=== PATIENT | male | born 1960 | race Caucasian/White ===

== ENCOUNTER → 2020-11-13 | Outpatient (CLI) | payer OTHER ==
[~2020-11-13] MED LIST: ALBUTEROL SULFATE 0.083% 2.5 MG/3 ML INH IH ONE
== END | disposition home or self-care (01) ==
LOC: RESP 12:59
PROVIDERS: ATTEND Orthopaedic Surgery
DX: J44.9 Chronic obstructive pulmonary disease, unspecified (principal)
CPT/HCPCS: 71046; 94060

== ENCOUNTER 2021-04-23 16:08 | Inpatient (IN) | payer OTHER ==
[~2021-04-23] VITALS: Ht 175.3 cm; Wt 108.9 kg
[2021-04-23 16:13] VITALS: BP 117/69
[2021-04-23 16:38] LABS: BASOPHILS % (AUTO) 0.6 % (0.0-5.0); EOSINOPHILS % (AUTO) 0.9 % (0.0-8.0); HEMATOCRIT 45.1 % (42-54); LYMPHOCYTES % (AUTO) 22.7 % (21.0-51.0); MEAN CORPUSCULAR HEMOGLOBIN 27.2 pg (27.0-33.0); MEAN CORPUSCULAR HGB CONC 31.5 g/dL (32.0-36.0); MEAN CORPUSCULAR VOLUME 86.2 fL (79-99); MONOCYTES % (AUTO) 9.2 % (3.0-13.0); NEUTROPHILS % (AUTO) 66.4 % (40.0-77.0); PLATELET COUNT (AUTO) 262 K/uL (130-400); RED BLOOD CELL COUNT(AUTO) 5.23 MIL/uL (4.50-6.20); RED CELL DISTRIBUTION WIDTH 15.7 % (11.0-15.5); WHITE BLOOD COUNT (AUTO) 4.7 K/uL (4.8-10.8)
[2021-04-23 16:47] LABS: CREATININE 1.2 mg/dL (0.5-1.5); POTASSIUM 4.3 mmol/L (3.5-5.1)
[2021-04-23 16:58] LABS: ALBUMIN 3.6 g/dL (3.5-5.0); TOTAL PROTEIN, SERUM 7.5 g/dL (6.0-8.3); TROPONIN I 0.31 ng/mL (0.00-0.06)
[2021-04-23 17:01] LABS: THYROID STIMULATING HORMONE 5.54 uIU/mL (0.36-3.74)
[2021-04-23 17:29] VITALS: BP 117/76
[2021-04-23] MEDS ORDERED: ASPIRIN 325 MG TABLET PO ONE (17:30)
[2021-04-23] MEDS ORDERED: NACL 0.9% 1000ML 1,000 ML IV ONE (17:30)
[2021-04-23 18:09] VITALS: BP 122/72
[2021-04-23] MEDS ORDERED: METOPROLOL TARTRATE 1 MG/ML 5ML VIAL IV ONE (18:30)
[2021-04-23 19:11] LABS: APPEARANCE,URINE Clear (CLEAR); BILIRUBIN,URINE Negative (NEGATIVE); COLOR,URINE Yellow (YELLOW); GLUCOSE, URINE (UA) Negative (NEGATIVE); KETONES,URINE Negative (NEGATIVE); LEUKOCYTE ESTERASE ,URINE Negative (NEGATIVE); NITRATE,URINE Negative (NEGATIVE); OCCULT BLOOD,URINE Negative (NEGATIVE); PH,URINE 7.5 (5.0-8.0); PROTEIN,URINE Negative (NEGATIVE)
[2021-04-23 19:19] VITALS: BP 122/77
[2021-04-23 19:19] LABS: AMPHET/METH SCREEN,URINE NEGATIVE (NEGATIVE); BARBITURATE SCREEN, URINE NEGATIVE (NEGATIVE); BENZODIAZEPINES SCREEN,URINE NEGATIVE (NEGATIVE); CANNABINOID SCREEN,URINE NEGATIVE (NEGATIVE); COCAINE SCREEN,URINE NEGATIVE (NEGATIVE); OPIATE SCREEN,URINE NEGATIVE (NEGATIVE); PHENCYCLIDINE SCREEN,URINE NEGATIVE (NEGATIVE)
[2021-04-23] MEDS ORDERED: ONDANSETRON 4MG INJ IV PRN (21:15)
[2021-04-23] MEDS ORDERED: ACETAMINOPHEN 325 MG TAB PO PRN ×2 (21:15)
[2021-04-23 21:47] VITALS: BP 145/91
[2021-04-23] MEDS ORDERED: VITA1TAB22 PO (22:47)
[2021-04-23] MEDS ORDERED: ASPI-1197 PO (22:47)
[2021-04-23] MEDS ORDERED: ATOR40TA69 PO (22:47)
[2021-04-23] MEDS ORDERED: LEVO100C4 PO (22:47)
[2021-04-23] MEDS ORDERED: MULT-1203 PO (22:47)
[2021-04-23] MEDS ORDERED: ENAL10TA18 PO (22:47)
[2021-04-23] MEDS ORDERED: FLUO20TA29 PO (22:47)
[2021-04-23] MEDS ORDERED: FISH1CAP20 PO (22:47)
[2021-04-24] VITALS (9 sets, daily range): BP systolic 101–139; BP diastolic 47–91
[2021-04-24 06:37] LABS: BASOPHILS % (AUTO) 0.9 % (0.0-5.0); EOSINOPHILS % (AUTO) 2.4 % (0.0-8.0); LYMPHOCYTES % (AUTO) 25.8 % (21.0-51.0); MEAN CORPUSCULAR HEMOGLOBIN 26.6 pg (27.0-33.0); MEAN CORPUSCULAR VOLUME 86.1 fL (79-99); MONOCYTES % (AUTO) 10.4 % (3.0-13.0); NEUTROPHILS % (AUTO) 60.3 % (40.0-77.0); PLATELET COUNT (AUTO) 257 K/uL (130-400); RED BLOOD CELL COUNT(AUTO) 4.88 MIL/uL (4.50-6.20); RED CELL DISTRIBUTION WIDTH 15.7 % (11.0-15.5); WHITE BLOOD COUNT (AUTO) 4.6 K/uL (4.8-10.8)
[2021-04-24 06:49] LABS: ALBUMIN 3.2 g/dL (3.5-5.0); BILIRUBIN,TOTAL 0.6 mg/dL (0.2-1.0); CREATININE 1.1 mg/dL (0.5-1.5); POTASSIUM 4.2 mmol/L (3.5-5.1); TOTAL PROTEIN, SERUM 6.9 g/dL (6.0-8.3)
[2021-04-24] MEDS: INSULIN HUMULIN R 100 UNIT/ML 3ML SQ SCH ×4 (07:14→20:24)
[2021-04-24] MEDS ORDERED: HEPARIN 5,000 UNIT VIAL SQ SCH (08:15)
[2021-04-24] MEDS ORDERED: METOPROLOL TARTRATE 25 MG TAB PO SCH (09:00)
[2021-04-24] MEDS ORDERED: ENOXAPARIN SODIUM 30 MG/0.3 ML SQ SCH (09:00)
[2021-04-24] MEDS ORDERED: METOPROLOL TARTRATE 1 MG/ML 5ML VIAL IV STA (13:24)
[2021-04-24] MEDS ORDERED: METOPROLOL TARTRATE 1 MG/ML 5ML VIAL IV ONE (13:30)
[2021-04-24] MEDS ORDERED: METOPROLOL TARTRATE 1 MG/ML 5ML VIAL IV SCH (13:30)
[2021-04-24] MEDS ORDERED: NITROGLYCERIN 0.4 MG SL TAB SL ONE (13:30)
[2021-04-24] MEDS ORDERED: NITROGLYCERIN 0.4 MG SL TAB SL PRN ×2 (13:30)
[2021-04-24 14:40] LABS: TROPONIN I 0.2 ng/mL (0.00-0.06)
[2021-04-24] MEDS ORDERED: DILTIAZEM 125MG+100 ML NS 125 ML IV SCH (15:00)
[2021-04-24] MEDS ORDERED: ENOXAPARIN SODIUM 120 MG/0.8ML SQ ONE (19:29)
[2021-04-24] MEDS: ENOXAPARIN SODIUM 120 MG/0.8ML SQ SCH (20:21)
[2021-04-24] MEDS ORDERED: ENOXAPARIN SODIUM 1 MG/KG SQ SCH (21:00)
[2021-04-24] MEDS: DILTIAZEM 60MG TAB PO SCH (21:32)
[2021-04-25 04:03] VITALS: BP 119/55
[2021-04-25 04:33] LABS: BASOPHILS % (AUTO) 0.6 % (0.0-5.0); EOSINOPHILS % (AUTO) 1.7 % (0.0-8.0); HEMATOCRIT 40.5 % (42-54); LYMPHOCYTES % (AUTO) 27.6 % (21.0-51.0); MEAN CORPUSCULAR HEMOGLOBIN 26.8 pg (27.0-33.0); MEAN CORPUSCULAR HGB CONC 31.1 g/dL (32.0-36.0); MONOCYTES % (AUTO) 12.1 % (3.0-13.0); NEUTROPHILS % (AUTO) 57.8 % (40.0-77.0); PLATELET COUNT (AUTO) 213 K/uL (130-400); RED BLOOD CELL COUNT(AUTO) 4.71 MIL/uL (4.50-6.20); RED CELL DISTRIBUTION WIDTH 15.7 % (11.0-15.5); WHITE BLOOD COUNT (AUTO) 4.8 K/uL (4.8-10.8)
[2021-04-25 04:51] LABS: ALBUMIN 3.3 g/dL (3.5-5.0); BILIRUBIN,TOTAL 0.6 mg/dL (0.2-1.0); CREATININE 0.9 mg/dL (0.5-1.5); POTASSIUM 4.2 mmol/L (3.5-5.1); TOTAL PROTEIN, SERUM 6.9 g/dL (6.0-8.3)
[2021-04-25] MEDS: INSULIN HUMULIN R 100 UNIT/ML 3ML SQ SCH ×4 (05:39→21:00)
[2021-04-25 07:00] VITALS: BP 142/68
[2021-04-25] MEDS ORDERED: ASPIRIN 81MG CHEW TAB PO SCH (09:00)
[2021-04-25] MEDS: MULTIVITAMIN TABLET PO SCH (09:38)
[2021-04-25] MEDS: ASPIRIN 81MG CHEW TAB PO SCH (09:38)
[2021-04-25] MEDS: FISH OIL 1000 MG/CAP PO SCH (09:38)
[2021-04-25] MEDS: FLUOXETINE HCL 20 MG CAPSULE PO SCH (09:38)
[2021-04-25] MEDS: ENOXAPARIN SODIUM 120 MG/0.8ML SQ SCH ×2 (09:39→21:20)
[2021-04-25 11:00] VITALS: BP 150/71
[2021-04-25] MEDS: DILTIAZEM 60MG TAB PO SCH ×3 (11:29→23:32)
[2021-04-25 15:00] VITALS: BP 134/76
[2021-04-25 20:17] VITALS: BP 153/71
[2021-04-25] MEDS: ATORVASTATIN 40 MG TABLET PO SCH (21:21)
[2021-04-25 23:26] VITALS: BP 124/51
[2021-04-26] VITALS (7 sets, daily range): BP systolic 130–186; BP diastolic 60–83
[2021-04-26 03:47] LABS: BASOPHILS % (AUTO) 0.4 % (0.0-5.0); EOSINOPHILS % (AUTO) 0.7 % (0.0-8.0); HEMATOCRIT 39.5 % (42-54); LYMPHOCYTES % (AUTO) 18.3 % (21.0-51.0); MEAN CORPUSCULAR HEMOGLOBIN 27.6 pg (27.0-33.0); MEAN CORPUSCULAR HGB CONC 31.9 g/dL (32.0-36.0); MEAN CORPUSCULAR VOLUME 86.4 fL (79-99); MONOCYTES % (AUTO) 9.9 % (3.0-13.0); NEUTROPHILS % (AUTO) 70.2 % (40.0-77.0); PLATELET COUNT (AUTO) 213 K/uL (130-400); RED BLOOD CELL COUNT(AUTO) 4.57 MIL/uL (4.50-6.20); RED CELL DISTRIBUTION WIDTH 15.3 % (11.0-15.5); WHITE BLOOD COUNT (AUTO) 5.5 K/uL (4.8-10.8)
[2021-04-26 04:02] LABS: ALBUMIN 3.3 g/dL (3.5-5.0); BILIRUBIN,TOTAL 0.8 mg/dL (0.2-1.0); CREATININE 0.9 mg/dL (0.5-1.5); POTASSIUM 3.9 mmol/L (3.5-5.1)
[2021-04-26] MEDS: INSULIN HUMULIN R 100 UNIT/ML 3ML SQ SCH ×4 (05:38→20:25)
[2021-04-26] MEDS ORDERED: LEVOTHYROXINE 100 MCG TABLET ONE (05:43)
[2021-04-26] MEDS: LEVOTHYROXINE 100 MCG TABLET PO SCH (05:44)
[2021-04-26] MEDS: DILTIAZEM 60MG TAB PO SCH (05:44)
[2021-04-26] MEDS ORDERED: REGADENOSON 0.4 MG/5 ML PF SYG IVP SCH (09:45)
[2021-04-26] MEDS: FISH OIL 1000 MG/CAP PO SCH (11:55)
[2021-04-26] MEDS: MULTIVITAMIN TABLET PO SCH (11:55)
[2021-04-26] MEDS: FLUOXETINE HCL 20 MG CAPSULE PO SCH (11:55)
[2021-04-26] MEDS: ASPIRIN 81MG CHEW TAB PO SCH (11:56)
[2021-04-26] MEDS ORDERED: ENALAPRIL MALEATE 10 MG TABLET PO SCH (17:59)
[2021-04-26] MEDS: ALBUTEROL 0.083% 2.5 MG/3 ML INH IH SCH ×2 (19:12→23:33)
[2021-04-26] MEDS: BUDESONIDE 0.5 MG/2 ML INH IH SCH (19:12)
[2021-04-26] MEDS ORDERED: DILTIAZEM 120MG SR CAP PO SCH (20:00)
[2021-04-26] MEDS: APIXABAN 5 MG TABLET PO SCH (20:29)
[2021-04-26] MEDS: ATORVASTATIN 40 MG TABLET PO SCH (20:29)
[2021-04-27 03:38] VITALS: BP 96/59
[2021-04-27 04:51] LABS: BASOPHILS % (AUTO) 0.4 % (0.0-5.0); EOSINOPHILS % (AUTO) 1.1 % (0.0-8.0); HEMATOCRIT 41.9 % (42-54); LYMPHOCYTES % (AUTO) 19.8 % (21.0-51.0); MEAN CORPUSCULAR HEMOGLOBIN 26.9 pg (27.0-33.0); MEAN CORPUSCULAR HGB CONC 32.2 g/dL (32.0-36.0); MEAN CORPUSCULAR VOLUME 83.6 fL (79-99); MONOCYTES % (AUTO) 11.4 % (3.0-13.0); NEUTROPHILS % (AUTO) 66.9 % (40.0-77.0); PLATELET COUNT (AUTO) 233 K/uL (130-400); RED BLOOD CELL COUNT(AUTO) 5.01 MIL/uL (4.50-6.20); WHITE BLOOD COUNT (AUTO) 4.7 K/uL (4.8-10.8)
[2021-04-27 05:12] LABS: ALBUMIN 3.2 g/dL (3.5-5.0); BILIRUBIN,TOTAL 1.4 mg/dL (0.2-1.0); POTASSIUM 3.5 mmol/L (3.5-5.1); TOTAL PROTEIN, SERUM 7.1 g/dL (6.0-8.3)
[2021-04-27] MEDS: INSULIN HUMULIN R 100 UNIT/ML 3ML SQ SCH ×2 (06:14→11:01)
[2021-04-27] MEDS: BUDESONIDE 0.5 MG/2 ML INH IH SCH (06:36)
[2021-04-27] MEDS: ALBUTEROL 0.083% 2.5 MG/3 ML INH IH SCH ×2 (06:36→11:24)
[2021-04-27] MEDS: LEVOTHYROXINE 100 MCG TABLET PO SCH (06:51)
[2021-04-27 07:00] VITALS: BP 130/69
[2021-04-27] MEDS: ASPIRIN 81MG CHEW TAB PO SCH (08:21)
[2021-04-27] MEDS: MULTIVITAMIN TABLET PO SCH (08:22)
[2021-04-27] MEDS: FLUOXETINE HCL 20 MG CAPSULE PO SCH (08:22)
[2021-04-27] MEDS: APIXABAN 5 MG TABLET PO SCH (08:22)
[2021-04-27] MEDS: FISH OIL 1000 MG/CAP PO SCH (08:23)
[2021-04-27] MEDS ORDERED: DILTIAZEM 120MG SR CAP PO SCH (09:00)
[2021-04-27 11:00] VITALS: BP 112/65
[2021-04-27] MEDS ORDERED: APIX5TAB PO (11:15)
[2021-04-27] MEDS ORDERED: DILT120C89 PO (11:15)
[2021-04-27] MEDS ORDERED: Nitroglycerin 0.4MG Sl Tab SL (11:15)
== END 2021-04-27 12:45 | disposition home or self-care (01) | DRG 310 ==
LOC: EDH 16:08 → EDHIP 21:07 → 3BH 04-24 07:28 → 4DH 04-24 15:05
PROVIDERS: ADMIT Internal Medicine; ATTEND Internal Medicine
DX: I48.0 Paroxysmal atrial fibrillation (principal); I48.92 Unspecified atrial flutter; E03.9 Hypothyroidism, unspecified; I10 Essential (primary) hypertension; J44.9 Chronic obstructive pulmonary disease, unspecified; E11.9 Type 2 diabetes mellitus without complications; Z86.73 Personal history of transient ischemic attack (TIA), and cerebral infarction without residual deficits; Z79.01 Long term (current) use of anticoagulants; Z79.899 Other long term (current) drug therapy; Z95.5 Presence of coronary angioplasty implant and graft; I34.0 Nonrheumatic mitral (valve) insufficiency; I25.10 Atherosclerotic heart disease of native coronary artery without angina pectoris; F17.210 Nicotine dependence, cigarettes, uncomplicated; Z96.641 Presence of right artificial hip joint; E78.5 Hyperlipidemia, unspecified; E78.00 Pure hypercholesterolemia, unspecified
CPT/HCPCS: 36415; 71045; 78452; 80053; 80305; 81003; 82550; 82948; 83036; 83735; 83874; 84439; 84443; 84484; 85025; 93005; 93017; 93306; 93356; 94640; 94664; 96374; A9500; G0378; J1644; J1650; J2785; J3490; J7030

== ENCOUNTER 2025-10-02 06:03 | Day surgery (SDC) | payer OTHER ==
[2025-09-25 15:25] LABS: IMMATURE GRANULOCYTE ABSOLUTE 0.01 K/uL (0-1); NUCLEATED RED BLOOD CELLS 0.0 % (0.0-0.19); PLATELET COUNT (AUTO) 170 K/uL (130-400); RED BLOOD CELL COUNT(AUTO) 4.45 MIL/uL (4.50-6.20); RED CELL DISTRIBUTION WIDTH 15.4 % (11.0-15.5); WHITE BLOOD COUNT (AUTO) 3.7 K/uL (4.8-10.8)
[2025-09-25 15:44] LABS: CREATININE 1.5 mg/dL (0.5-1.3); GLOMERULAR FILTR. RATE CALC 51.0 mL/min (>90); GLUCOSE,RANDOM 80.0 mg/dL (70-105); SODIUM SERUM 135.0 mmol/L (136-145); UREA NITROGEN, BLOOD 23.0 mg/dL (7-18)
[2025-09-25 16:53] VITALS: BP 126/57; PULSE 55; RESP 15; TEMP 97.3
[2025-10-02] VITALS (9 sets, daily range): BP systolic 121–176; BP diastolic 51–76; PULSE 40–55; RESP 14–16; TEMP 97.9–98.9
[~2025-10-02] VITALS: Ht 175.3 cm; Wt 99.7 kg
--- NOTE | 2025-10-02 06:33 | EKG ---
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1960 Requested By: MICHELLE HILARIO Order Number: [id number] Reading MD: Ana Springer Measurements Intervals [place] Rate: 54 P: 0 [place]: 0 QRS: 79 QRSD: 126 T: 0 QT: 531 QTc: 522 Interpretive Statements Atrial flutter with predominant 4:1 AV block LVH with secondary repolarization abnormality Prolonged QT interval Compared to ECG 04/26/2021 18:21:18 AV block, advanced (high-grade) now present Left ventricular hypertrophy now present Early repolarization now present Prolonged QT interval now present Ventricular premature complex(es) no longer present ST (T wave) deviation no longer present T-wave abnormality no longer present Electronically Signed On 10-02-2025 10:31:19 EDUCATOR SENIOR CLINICAL by Ana Springer Please click the below link to view image of tracing.
--- NOTE | 2025-10-02 07:43 | NUR ---
PT SYNCHRONIZED CARDIOVERTED [address] HILARIO PT TOLERATED WELL NAD VSS PT IN SINUS UZMA
--- NOTE | 2025-10-02 07:49 | NUR ---
PT AWAKE SPEAKING WITH STAFF VSS NAD
--- NOTE | 2025-10-02 08:55 | NUR ---
BOTH PT AND SON GIVEN VERBAL AND WRITTEN DISCHARGE INSTRUCTIONS. INSTRUCTIONS TO START TAKING METOPROLOL 25MG INSTEAD OF 50MG WERE GIVEN TO BOTH WRITTEN AND VERBALLY AT [facility]. IV REMOVED SITE ASYMPTOMATIC. PT TAKEN OUT VIA WHEELCHAIR SON DRIVING.
--- NOTE | 2025-10-02 14:35 | PRN ---
Procedure Note Date of procedure: 10/02/25 Diagnosis: Persistent atrial flutter Procedure: Cardioversion Physician: Selvin Hilario MD The patient was brought to the day patient area in a fasting state. Anesthesia was provided by the anesthesia service. Cardioversion was performed with a synchronized shock at 200 joules resulting in sinus rhythm. The patient tolerated the procedure well. Final diagnosis: Persistent atrial flutter status post successful cardioversion Disposition: The patient will be discharged later today and will follow up with me in the office in approximately two weeks. SELVIN HILARIO MD Oct 02, 2025 14:35
--- NOTE | 2025-10-05 10:21 | EKG ---
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
== END 2025-10-02 09:00 | disposition home or self-care (01) ==
LOC: DAH 06:03
PROVIDERS: ATTEND Internal Medicine Cardiovascular Disease
DX: I48.3 Typical atrial flutter (principal); Z79.82 Long term (current) use of aspirin; Z98.52 Vasectomy status; Z83.3 Family history of diabetes mellitus; I44.0 Atrioventricular block, first degree; Z82.49 Family history of ischemic heart disease and other diseases of the circulatory system; Z88.0 Allergy status to penicillin; Z79.899 Other long term (current) drug therapy
CPT/HCPCS: 80048; 85025; 36415; 92960; 93005 ×2; J2704; A4620; A4215; A4222; A4221; A4663; A4216; A4606; A4223 ×2; J3490